=== PATIENT | female | born 1950 | race Caucasian/White ===

== ENCOUNTER 2018-10-31 13:30 | Emergency (ER) | payer OTHER ==
[2018-10-31] MEDS ORDERED: NS 1,000 ML IV ONE (13:52)
[2018-10-31] MEDS ORDERED: HYDROmorphONE/DILAUDID 2 MG/ML INJ IVP ONE (13:52)
[2018-10-31] MEDS ORDERED: ONDANSETRON 4 MG/2 ML VIAL IVP ONE (13:52)
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
[2018-10-31] MEDS ORDERED: IOPAMIDOL (ISOVUE-300) 100 ML BTL ONE (14:05)
[2018-10-31] MEDS ORDERED: HYDROCOD/APAP 5/325 PREPACK#6 BTL TAKEHOME ONE ×2 (15:49→18:24)
[2018-10-31 18:02] VITALS: BP 99/60
== END 2018-10-31 18:32 | disposition home or self-care (01) ==
DX: S20.211A Contusion of right front wall of thorax, initial encounter (principal); R10.11 Right upper quadrant pain; M54.5 Low back pain; R42 Dizziness and giddiness; E86.9 Volume depletion, unspecified; V49.9XXA Car occupant (driver) (passenger) injured in unspecified traffic accident, initial encounter; Y92.9 Unspecified place or not applicable; Y93.9 Activity, unspecified; Y99.9 Unspecified external cause status
CPT/HCPCS: 82435-PO; 82565-PO; 82947-PO; 84132-PO; 84295-PO; 84520-PO; 85014-PO; 96374; J1170; J2405; Q9967